=== PATIENT | female | born 1950 | race Caucasian/White ===

== ENCOUNTER 2016-09-16 15:37 | Emergency (ER) | payer MEDICARE ==
[2016-09-16] MEDS ORDERED: DIPH,PERTUSS(ACELL),TET VAC/PF 0.5 ML VIAL IM ONE (16:23)
--- NOTE | 2016-09-16 16:30 | CT REPORT ---
HISTORY: Acute trauma with headache. COMPARISON: None TECHNIQUE: Axial CT images were obtained through the head and reformatted in coronal planes without the intraven ous administration of contrast. Dose reduction technique was utilized. FINDINGS: There is a punctate hyperdensity in the central baljit. There is mild diffuse atrophy, average for the patient's age. There is no acute infarct, mass, hydrocephalus or midline shift. There is no acute calvarial fracture. The visualized portions of the paranasal sinuses and the bilate ral mastoid air cells are clear. There is a laceration and hematoma in the vertex scalp. IMPRESSION: Punctate hyperdensity in the central baljit. Acute hemorrhage cannot be excluded. Results were communicated to OVI POTTS MD at 09/16/2016 4:20 PM. Final Electronic Signature: This report was electronically signed by Luis Peng MD on 09/17/19 4:27 PM. quiana /
--- NOTE | 2016-09-16 17:07 | RADIOLOGY REPORT ---
Two views of the chest demonstrate the heart, vessels and lungs are stable and unremarkable. IMPRESSION: Unremarkable two views of the chest. MTDD
--- NOTE | 2016-09-16 17:25 | ER NURSING DOCUMENTATION ---
Nurse's Notes [facility] Name:Ldey Veliz Age:65 yrs Sex:Female :1950 Arrival Date:09/16/2016 Time:15:37 BedTrauma-B Private MD:Nan Andrade Diagnosis:Head Injury Presentation: 09/16 15:43 Acuity: KAREL 2 15:58 Presenting complaint: Patient states: Pt was riding a horse and the horse fell, The rh horse got up and as a result the patient went over the front of the horse at hit her head on a rock. Pt no LOC or nausea. Pt c/o headache and right sided rib pain. Care prior to arrival: None. Mechanism of Injury: Horse accident. Trauma event details: Injury occurred in the [facility] Injury occurred in a recreational area. Injury occurred September 16, 2016 Injury occurred at 15:00. 15:58 Method Of Arrival: Private Vehicle 17:19 Transition of care: Home. Triage Assessment: 16:01 Neuro: Level of Consciousness is awake, alert, obeys commands, Oriented to person, rh place, time, event. Historical: - Allergies: PENICILLINS; - Home Meds: 1. citalopram 40 mg oral tab 1 tab once daily 2. bupropion HCl 150 mg oral TbER 1 tab once daily 3. valacyclovir 500 mg oral tab 1 tab once daily 4. losartan 100 mg oral tab 1 tab once daily 5. WelChol 625 mg oral tab 1 tab once daily with a meal and liquid 6. omeprazole 20 mg oral cpDR 1 cap once daily 7. alendronate 70 mg oral tab 1 tab once wkly - PMHx: Hypertension; DEPRESSION; GERD; TIA; HYPOTHYROIDISM; - PSHx: THYROIDECTOMY; Cholecysectomy; Tonsillectomy; TUBAL LIGATION; DNC; CATARACT; - Tetanus: > 10 years > 10 years. - Immunization history: Vaccine Information Sheet provided regarding tetanus vaccine. - Ebola Screening: : Patient negative for fever greater than or equal to 101.5 degrees Fahrenheit, and additional compatible Ebola Virus Disease symptoms. - Social history: Smoking status: Patient states was never smoker of tobacco. Screenin:01 Abuse screen: Denies threats or abuse. Denies injuries from another. Nutritional rh screening: No deficits noted. Tuberculosis screening: No symptoms or risk factors identified. 17:19 Infectious Disease Risk None. rh Primary Survey: 16:00 Breathing/Chest: Respiratory pattern: regular. Circulation: Skin color: pink. rh Assessment: 15:59 General: Appears in no apparent distress, Behavior is cooperative. Pain: Complains of rh pain in scalp. Neuro: Level of Consciousness is awake, alert, obeys commands, Oriented to person, place, time, event, Online Banking Specialist are equal bilaterally Moves all extremities. Gait is steady, Speech is normal, Facial symmetry appears normal, Pupils are PERRLA. EENT: Oral mucosa is dry. Cardiovascular: Capillary refill < 3 seconds. Respiratory: Airway is patent Denies shortness of breath pain with respiration. GI: Denies nausea. : No deficits noted. Derm: Skin is intact, is healthy with good turgor, Skin is pink, warm & dry. Injury Description: Laceration sustained to right side of the back of head is clean, superficial, not bleeding, was sustained less than 30 minutes ago. is bleeding a small amount. 17:16 Neuro: Level of Consciousness is awake, alert, obeys commands, Oriented to person, rh place, time, event, Online Banking Specialist are equal bilaterally Moves all extremities. Gait is steady, Speech is normal. Vital Signs: 16:00 BP 140 / 59; Pulse 91; Resp 16; Temp 98.3(O); Pulse Ox 95% on R/A; Weight 68.04 kg; rh Height 5 ft. 0 in. (152.40 cm); Pain 8/10; 16:35 BP 137 / 83; Pulse 81; Resp 16; Pulse Ox 96% on R/A; rh 17:17 BP 156 / 70; Pulse 81; Resp 16; Pulse Ox 95% ; rh 17:24 Pulse 75; Resp 16; Pulse Ox 95% on R/A; rh 16:00 Body Mass Index 29.29 (68.04 kg, 152.40 cm) rh Trauma Score (Adult): 16:00 Eye Response: spontaneous(1); Verbal Response: oriented(1); Motor Response: obeys commands(2); Systolic BP: > 89 mm Hg(4); Respiratory Rate: 10 to 29 per min(4); [place] Score: 15; Trauma Score: 12 17:17 Eye Response: spontaneous(1); Verbal Response: oriented(1); Motor Response: obeys commands(2); Systolic BP: > 89 mm Hg(4); Respiratory Rate: 10 to 29 per min(4); Amber Score: 15; Trauma Score: 12 ED Course: 15:38 Patient arrived in ED. ds 15:38 Nan Andrade DO is Private Physician. ds 15:40 Wound care to laceration located on right side of the back of head was cleaned with soap and water, Irrigation Normal Saline Patient tolerated well. 15:43 Jennifer Bowen is Primary Nurse. rh 15:43 Marc Mobley MD is Attending Physician. be 15:43 Triage completed. rh 15:45 Assist Provider Assist provider with laceration repair on right side of the back of rh head that was 2.5 cm. or less using douglas. Set up tray. Performed by Marc Mobley MD Patient tolerated well. 15:45 Notified ED Physician of patient's arrival and chief complaint. Dr. Mobley. rh 15:[address] tt 16:01 Valuables Remains with patient Patient has correct armband on for positive rh identification. Placed in gown. Bed in low position. Call light in reach. Side rails up X 1. Family accompanied patient. 16:20 Patient moved back from CT. dnn 16:40 Inserted peripheral IV: 20 gauge in left antecubital area and blood collected. rh 17:19 Valuables Remains with patient. rh Administered Medications: 16:25 Drug: Adacel 0.5 ml; {Chipper Operator: San[employer] P[employer] ([employer]). Exp: 05/26/2018. Lot #: [id number]. } Route: IM; Site: left deltoid; 16:40 Follow up: Response: No adverse reaction rh Outcome: 16:49 ER care complete, transfer ordered by . be 17:17 Transferred: Patient will be transferred to: [facility]. Facility rh Acceptance Time: September 16, 2016 at 16:55 Patient's face sheet was faxed to accepting facility. Face Sheet included patient's name, address, age, gender, contact information and insurance information. Patient will be transported by: [facility] [place]. Nurse and Physician Charting and Notes were sent to Accepting Facility. All tests and/or procedures with results, if applicable, were sent to accepting facility. 17:17 Condition: stable 17:17 Instructed on need for transfer 17:23 Transferred: Report called to: BELEN Vega RN EMERGENCY DEPARTMENT rh 17:24 Patient left the ED. rh Signatures: Hanh Ramirez, Marc Vernon MD MD be Terriere, Tracy tt Norman, David dnn Hofsess, Rachel rh
--- NOTE | 2016-09-16 17:25 | ER PHYSICIAN DOCUMENTATION ---
Physician Documentation [facility] Name:Ledy Veliz Age:65 yrs Sex:Female :1950 Arrival Date:09/16/2016 Time:15:37 BedTrauma-B Private MD:Nan Andrade ED, Brian Disposition: 09/16/16 16:49 Transfer ordered to [facility]. Diagnosis is Head Injury. - Reason for transfer: Higher level of care. - Accepting physician is Dr. Dye, notified.. - Condition is Good. - Problem is new. - Symptoms are unchanged. COBRA Form completed? Yes Transfer - Mode of Transportation Ambulance HPI: 09/16 16:40 This 65 yrs old Female presents to ER via Private Vehicle with complaints of be Fall Injury - thrown from horse. 16:40 Details of fall: The patient fell from seated position, on horse. Onset: The be symptom(s)/episode began/occurred acutely, just prior to arrival. Associated signs and symptoms: Pertinent positives: amnesia, Pertinent negatives: abdominal pain, blurred vision, chest pain, confusion, headache, numbness, vomiting, Loss of consciousness: the patient experienced no loss of consciousness. Historical: - Allergies: PENICILLINS; - Home Meds: 1. citalopram 40 mg oral tab 1 tab once daily 2. bupropion HCl 150 mg oral TbER 1 tab once daily 3. valacyclovir 500 mg oral tab 1 tab once daily 4. losartan 100 mg oral tab 1 tab once daily 5. WelChol 625 mg oral tab 1 tab once daily with a meal and liquid 6. omeprazole 20 mg oral cpDR 1 cap once daily 7. alendronate 70 mg oral tab 1 tab once wkly - PMHx: Hypertension; DEPRESSION; GERD; TIA; HYPOTHYROIDISM; - PSHx: THYROIDECTOMY; Cholecysectomy; Tonsillectomy; TUBAL LIGATION; DNC; CATARACT; - Tetanus: > 10 years > 10 years. - Immunization history: Vaccine Information Sheet provided regarding tetanus vaccine. - Ebola Screening: : Patient negative for fever greater than or equal to 101.5 degrees Fahrenheit, and additional compatible Ebola Virus Disease symptoms. - Social history: Smoking status: Patient states was never smoker of tobacco. ROS: 16:41 MS/extremity: Negative for acute changes, injury or acute deformity, decreased range of be motion, deformity, pain. 16:41 Neuro: Positive for amnesia and vertex scalp laceration. 16:41 All other systems are negative. Exam: 16:42 Constitutional: This is a well developed, well nourished patient who is awake, alert, be and in no acute distress. 16:42 Head/Face: Normocephalic, 3 cm vertex scalp laceration w/o FB. be Eyes: Pupils equal round and reactive to light, extra-ocular motions intact. Lids and lashes normal. Conjunctiva and sclera are non-icteric and not injected. Cornea within normal limits. Periorbital areas with no swelling, redness, or edema. ENT: Nares patent. No nasal discharge, no septal abnormalities noted. Tympanic membranes are normal and external auditory canals are clear. Oropharynx with no redness, swelling, or masses, exudates, or evidence of obstruction, uvula midline. Mucous membranes moist. Neck: Trachea midline, no thyromegaly or masses palpated, and no cervical lymphadenopathy. Supple, full range of motion without nuchal rigidity, or vertebral point tenderness. No Meningismus. Chest/axilla: Normal chest wall appearance and motion. Slightly tender right lateral chest wall with no deformity. No lesions are appreciated. Cardiovascular: Regular rate and rhythm with a normal S1 and S2. No gallops, murmurs, or rubs. Normal PMI, no JVD. No pulse deficits. Respiratory: Lungs have equal breath sounds bilaterally, clear to auscultation and percussion. No rales, rhonchi or wheezes noted. No increased work of breathing, no retractions or nasal flaring. Abdomen/GI: Soft, non-tender, with normal bowel sounds. No distension or tympany. No guarding or rebound. No evidence of tenderness throughout. Back: No spinal tenderness. No costovertebral tenderness. Full range of motion. Skin: Warm, dry with normal turgor. Normal color with no rashes, no lesions, and no evidence of cellulitis. 16:42 Neuro: Awake and alert, GCS 15, oriented to person, place, time, and situation. Cranial nerves II-XII grossly intact. Motor strength 5/5 in all extremities. Sensory grossly intact. Cerebellar exam normal. Normal gait. 16:42 Musculoskeletal/extremity: Exam is negative for acute changes, abrasion, deformity, pain. 16:42 Neuro: Exam negative for acute changes, focal neuro deficits, motor deficits, sensory deficits, confusion. Vital Signs: 16:00 BP 140 / 59; Pulse 91; Resp 16; Temp 98.3(O); Pulse Ox 95% on R/A; Weight 68.04 kg; rh Height 5 ft. 0 in. (152.40 cm); Pain 8/10; 16:35 BP 137 / 83; Pulse 81; Resp 16; Pulse Ox 96% on R/A; rh 17:17 BP 156 / 70; Pulse 81; Resp 16; Pulse Ox 95% ; rh 17:24 Pulse 75; Resp 16; Pulse Ox 95% on R/A; rh 16:00 Body Mass Index 29.29 (68.04 kg, 152.40 cm) rh Trauma Score (Adult): 16:00 Eye Response: spontaneous(1); Verbal Response: oriented(1); Motor Response: obeys commands(2); Systolic BP: > 89 mm Hg(4); Respiratory Rate: 10 to 29 per min(4); [place] Score: 15; Trauma Score: 12 17:17 Eye Response: spontaneous(1); Verbal Response: oriented(1); Motor Response: obeys commands(2); Systolic BP: > 89 mm Hg(4); Respiratory Rate: 10 to 29 per min(4); [place] Score: 15; Trauma Score: 12 Laceration: 16:44 Wound Repair of 3cm ( 1.2in ) subcutaneous laceration to left side of the back of head be and right side of the back of head. Distal neuro/vascular/tendon intact. Wound prep: Simple cleansing with hibiclenz by nurse. Skin closed with 3 1-0 [place] using sterile technique. Dressed with Open to air. Patient tolerated well. MDM: 15:43 Patient medically screened. be 16:45 Differential diagnosis: closed head injury, fracture, laceration. Data reviewed: vital be signs, nurses notes, radiologic studies, CT scan, plain films, CT(head) showed possible baljit hemorrhage, and as a result, I will *Transfer Patient Dr. Hardik CHO Trauma accepted and notified EDP of arrival, by ground ambulance. Tdap updated. 09/16 16:32 Order name: CAT SCAN; HEAD W/O CON [id number]; Complete Time: 16:50 EDMS 07/06 09:00 Order name: CXR [id number] EDSD 09/16 16:18 Order name: Wound Care; Complete Time: 16:18 09/16 16:48 Order name: Iv Saline Lock; Complete Time: 16:48 rh Dispensed Medications: 16:25 Drug: Adacel 0.5 ml; {Railway Patrol Officer: Sanofi Pasteur ([employer]). Exp: 05/26/2018. Lot #: [id number]. } Route: IM; Site: left deltoid; 16:40 Follow up: Response: No adverse reaction rh Signatures: Marc Mobley MD MD be Hofsess, Rachel
== END 2016-09-16 17:24 | disposition short-term general hospital (02) ==
LOC: ER 15:37
DX: S09.90XA Unspecified injury of head, initial encounter (principal); S01.01XA Laceration without foreign body of scalp, initial encounter; R41.3 Other amnesia; R41.0 Disorientation, unspecified; R93.0 Abnormal findings on diagnostic imaging of skull and head, not elsewhere classified; R07.9 Chest pain, unspecified; V80.010A Animal-rider injured by fall from or being thrown from horse in noncollision accident, initial encounter; Y92.838 Other recreation area as the place of occurrence of the external cause; Y93.52 Activity, horseback riding; Z23 Encounter for immunization; I10 Essential (primary) hypertension; Z86.73 Personal history of transient ischemic attack (TIA), and cerebral infarction without residual deficits; Z79.899 Other long term (current) drug therapy; Z74.3 Need for continuous supervision
CPT/HCPCS: 12002; 70450; 71020; 90471; 99285; 99291; A0425; A0429